=== PATIENT | female | born 1995 | race Two or more races ===

== ENCOUNTER 2024-03-12 09:09 | Observation (INO) | payer OTHER ==
--- NOTE | 2024-03-12 11:00 | DVH ---
LIMITED OB ULTRASOUND > 14 WKS: HISTORY: PROM TECHNIQUE: Multiple real-time grayscale images of the gravid uterus with duplex Doppler color flow an d M-mode spectral analysis. TRANSDUCER: Transabdominal COMPARISON: None FINDINGS: IUP single live fetus at 34 weeks and 6 days based on composite averages of the BPD, head circumferen ce, abdominal circumference and femur length Estimated weight 2372 grams heart rate 142 beats per minute HERMILO 5.1 cm Cervix is open with fluid and measures 1.6 cm. Breech Presentation Posterior Placenta without previa or abruption. IMPRESSION: IUP single live fetus at 34 weeks and 6 days AUA corresponding to an REED of 04/17/2024 Cervix is open measuring 1.6 cm and contains fluid. Possible premature rupture of membranes. Critical Result: PROM Findings discussed with JOHN VEGA at 03/12/2024 10:57 AM, and acknowledged receipt and understandi ng of the findings.
--- NOTE | 2024-03-13 10:34 | DVHDS2 ---
Physician Discharge Progress N Final Diagnosis: ROM RULED OUT Operations or Procedures: Operations or Procedures NST,SONO Consultations: Consultations LEFT AMA TO GO TO [facility] Condition on Discharge: Unstable Disposition: AMA Discharge Instructions: Diet: See Comment Activity: Medications: NA Follow Up Care: Specialist: LEFT AMA Discharge Statement: "Patient was advised to return to the ER or call 911 if any headaches, dizziness, shortness of breath, chest pain, abdominal pain, bleeding, fevers, or worsening of medical condition. Patient was counseled about treatment plan, medications, possible side effects, patientverbalized understanding. All questions were answered to the best of my ability. This discharge took greater then 30 minutes in planning, reviewing documentation, counseling the patient, and discussing with other team members." JOHN VEGA DO Mar 13, 2024 10:34
== END 2024-03-12 10:48 | disposition left against medical advice (07) ==
LOC: UNDOADMOB 09:09 → LDRP 09:09
PROVIDERS: ADMIT Obstetrics & Gynecology; ATTEND Obstetrics & Gynecology
DX: O62.9 Abnormality of forces of labor, unspecified (principal); O26.893 Other specified pregnancy related conditions, third trimester; R10.9 Unspecified abdominal pain; Z3A.36 36 weeks gestation of pregnancy; Z79.899 Other long term (current) drug therapy
CPT/HCPCS: 59025; 76805; 81002; 94760; G0378